=== PATIENT | female | born 2000 | race Caucasian/White ===

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

== ENCOUNTER 2024-07-27 20:30 | Emergency (ER) | payer OTHER ==
[2024-07-27 20:35] VITALS: BP 125/75; PULSE 102; RESP 17; TEMP 98.9; BMI 24.1
[2024-07-27] MEDS ORDERED: DEXAMETHASONE SOD PHOSPHATE 10 MG/1 ML VIAL ONE (21:01)
[2024-07-27] MEDS ORDERED: guaiFENesin/D-METHORPHAN HB 10 ML UNIT-DOSE CUPS ONE (21:01)
[2024-07-27] MEDS ORDERED: ACETAMINOPHEN 500 MG TABLET (FP) ONE (21:01)
[2024-07-27] MEDS: guaiFENesin/D-METHORPHAN HB 10 ML UNIT-DOSE CUPS PO ONE (21:06)
[2024-07-27] MEDS: DEXAMETHASONE SOD PHOSPHATE 10 MG/1 ML VIAL PO ONE (21:06)
[2024-07-27] MEDS: ACETAMINOPHEN 500 MG TABLET (FP) PO ONE (21:07)
[2024-07-27 21:36] LABS: THROAT:GRP A STREP NOT DETECTED (NOTDETECTED)
== END 2024-07-27 21:56 | disposition home or self-care (01) ==
LOC: JERFT 20:30
DX: R50.9 Fever, unspecified (principal); B34.9 Viral infection, unspecified; R05.9 Cough, unspecified; R09.81 Nasal congestion; J02.9 Acute pharyngitis, unspecified; Z20.822 Contact with and (suspected) exposure to COVID-19
CPT/HCPCS: 0241U-QW; 87651; 99283-25; J1100